=== PATIENT | male | born 1995 | race Asian ===

== ENCOUNTER 2020-03-17 16:38 | Emergency (ER) | payer SELFPAY | END 2020-03-17 18:53 | disposition home or self-care (01) | LOC: ERS 16:38 | DX: S89.92XA Unspecified injury of left lower leg, initial encounter (principal); F17.290 Nicotine dependence, other tobacco product, uncomplicated; W19.XXXA Unspecified fall, initial encounter; Y93.01 Activity, walking, marching and hiking ==

== ENCOUNTER 2021-01-24 09:09 | Emergency (ER) | payer SELFPAY | END 2021-01-24 11:30 | disposition home or self-care (01) | LOC: ERS 09:09 | DX: K52.9 Noninfective gastroenteritis and colitis, unspecified (principal); Z86.16 Personal history of COVID-19; Z87.891 Personal history of nicotine dependence | CPT/HCPCS: 99284 ==